=== PATIENT | female | born 1950 | race Caucasian/White ===

== ENCOUNTER → 2017-12-15 12:02 | Outpatient (CLI) | payer MEDICARE, OTHER, SELFPAY ==
--- NOTE | 2017-12-15 | DI.MG.S_ITS ---
BILATERAL DIGITAL SCREENING MAMMOGRAM 3D/2D WITH CAD: 12/15/2017 CLINICAL: Routine screening. Comparison is made to exams dated: 12/02/2016 mammogram, 11/17/2015 mammogram, and 09/02/2014 mammogram - [facility]. The tissue of both breasts is heterogeneously dense. This may lower the sensitivity of mammography. Current study was also evaluated with a Computer Aided Detection (CAD) system. No significant masses, calcifications, or other findings are seen in either breast. There has been no significant interval change. IMPRESSION: NEGATIVE There is no mammographic evidence of malignancy. A 1 year screening mammogram is recommended. This exam was interpreted at Station ID: [id number]. NOTE: For mammograms, a report in lay terms will be sent to the patient. Approximately 15% of breast malignancies will not be visualized mammographically. In the management of a palpable breast mass, a negative mammogram must not discourage biopsy of a clinically suspicious lesion. Electronically Signed By: Timmy raphael/toyin:12/15/2017 15:17:41 letter sent: Normal Exam ACR BI-RADS Category 1: Negative [id number]
== END ==
PROVIDERS: PCP Internal Medicine; Visit Provider Internal Medicine
DX: Z12.31 Encounter for screening mammogram for malignant neoplasm of breast (principal)
CPT/HCPCS: 77063; 77067

== ENCOUNTER → 2018-06-01 13:36 | Outpatient (CLI) | payer MEDICARE, OTHER, SELFPAY ==
--- NOTE | 2018-06-01 | DI.MRI.S_ITS ---
PROCEDURE: MR HIP LT WO CON INDICATIONS: LEFT HIP PAIN TECHNIQUE: Noncontrast coronal T1 spin echo and STIR through the bony pelvis. Coronal and axial T2 fast spin echo with fat saturation, sagittal T1 spin echo, and oblique axial T2 fast spin echo with fat saturation through the hip. COMPARISON: [facility] [place], CR, XR PELVIS WITH LATERAL HIP LEFT, 05/28/2018, 9:53. FINDINGS: Image quality: Excellent. Bones and joints: Bone marrow of the pelvic ring and proximal femurs demonstrates normal oral signal. No intraosseous lesions or fractures. No avascular necrosis of the femoral heads. The visualized lower lumbar spine appears normally aligned. Tendons and ligaments: The gluteus medius and minimus tendons appear intact, without associated muscle atrophy. The nearby proximal iliotibial band also appears intact. The iliopsoas tendon appears intact, without adjacent bursal fluid collections or evidence for impingement syndrome. The origin of the hamstring tendons appears mildly attenuated proximally with mild peritendinous edema suggestive of mild strains. The straight and reflected heads of the rectus femoris muscle origin appear intact, as well as the conjoint tendon. The ligamentum teres appears slightly thickened and intermediate in signal which may represent degenerative changes or sequelae of a mild sprain. Labrum and cartilage: The acetabular labrum demonstrates intermediate signal within the anterosuperior and superior labrum compatible with degeneration or mild degenerative tearing. Cartilage surface of the femoral head demonstrates mild thickening superiorly. The alpha angle of the femur is within normal limits at less than 55 degrees. Soft tissues: Visualized muscles demonstrate normal bulk and internal signal. Quadratus femoris muscle demonstrates no internal edema to suggest ischiofemoral impingement. The proximal sciatic neurovascular bundle appears normal adjacent to the hamstring tendons. Bladder wall thickness is normal. There is a moderate amount of free fluid in the abdomen and pelvis partially visualized. A multilobulated cystic and solid mass is demonstrated within the pelvis slightly eccentric to the right side. This measures approximately 7.1 x 6.8 cm in the coronal plane and is incompletely evaluated on the current study. A cystic lesion is also noted in the left adnexa measuring approximately 1.8 cm. Visualized bowel loops appear normal in caliber. IMPRESSION: 1. Large heterogeneous cystic and solid mass in the pelvis with moderate free fluid demonstrated. The findings are incompletely evaluated on the current study but suggestive of an ovarian neoplasm. Initial further evaluation is recommended with CT. Findings discussed with Dr. Brown's medical asst on 06/01/18 at 3:30 PM. 2. Degenerative signal within the superior and anterosuperior labrum suggestive of mild degenerative tearing. 3. Mild thickening and intermediate signal in the ligamentum teres which may reflect degenerative change or sequela of a mild sprain. 4. Mild attenuation and peritendinous edema along the proximal hamstring tendons suggestive of a mild strain. Dictated by: Kelechi Quiroz M.D. on 06/01/2018 at 15:32 Approved by: Kelechi Quiroz M.D. on 06/01/2018 at 15:44
== END ==
PROVIDERS: PCP Internal Medicine; Visit Provider Orthopaedic Surgery
DX: M25.552 Pain in left hip (principal); R19.09 Other intra-abdominal and pelvic swelling, mass and lump
CPT/HCPCS: 73721

== ENCOUNTER → 2019-01-15 10:37 | Outpatient (CLI) | payer MEDICARE, OTHER, SELFPAY ==
--- NOTE | 2019-01-15 | DI.MG.S_ITS ---
BILATERAL DIGITAL SCREENING MAMMOGRAM 3D/2D WITH CAD: 01/15/2019 CLINICAL: Routine screening. Comparison is made to exams dated: 12/15/2017 mammogram, 12/02/2016 mammogram, 11/17/2015 mammogram, and 09/02/2014 mammogram - [facility]. The tissue of both breasts is heterogeneously dense. This may lower the sensitivity of mammography. Current study was also evaluated with a Computer Aided Detection (CAD) system. Partially imaged catheter port projects over the superior right chest. There is a mole marker on the left breast. No significant masses, calcifications, or other findings are seen in either breast. There has been no significant interval change. IMPRESSION: NEGATIVE There is no mammographic evidence of malignancy. A 1 year screening mammogram is recommended. This exam was interpreted at Station ID: [id number]. NOTE: For mammograms, a report in lay terms will be sent to the patient. Approximately 15% of breast malignancies will not be visualized mammographically. In the management of a palpable breast mass, a negative mammogram must not discourage biopsy of a clinically suspicious lesion. Electronically Signed By: Corey Enciso M.D. ecl/:01/15/2019 19:09:48 copy to: Inocencia Berumen letter sent: Normal Exam ACR BI-RADS Category 1: Negative 3341F
== END ==
PROVIDERS: PCP Nurse Practitioner; Visit Provider Internal Medicine
DX: Z12.31 Encounter for screening mammogram for malignant neoplasm of breast (principal)
CPT/HCPCS: 77063; 77067

== ENCOUNTER → 2019-10-17 09:52 | Outpatient (CLI) | payer MEDICARE, OTHER, SELFPAY ==
[2019-10-17 13:12] LABS: Alanine Aminotransferase 14 IU/L (<35); Albumin 4.3 g/dL (3.5-5.0); Albumin Globulin Ratio 1.5 (1.0-2.8); Alkaline Phosphatase 75 U/L (38-126); Aspartate Aminotransferase 23 IU/L (14-36); BUN Creatinine Ratio 28.9 (6-22); Bilirubin Total 0.4 mg/dL (0.2-1.3); Blood Urea Nitrogen 28 mg/dL (7-17); Calcium 9.4 mg/dL (8.4-10.2); Carbon Dioxide 29 mmol/L (22-32); Chloride 101 mmol/L (98-107); Cholesterol 236 mg/dL (140-199); Estimated Glomerular Filt Rate 57.3 mL/min (>60); Globulin 2.9 g/dL (1.7-4.1); Glucose 102 mg/dL (80-110); HDL Cholesterol 67 mg/dL (40-60); HEMOLYSIS < 15 (0-50); LDL Cholesterol Calculated 143 mg/dL (<100); Potassium 4.3 mmol/L (3.4-5.1); Sodium 137 mmol/L (137-145); Total Protein 7.2 g/dL (6.3-8.2); Triglycerides 132 mg/dL (35-150)
[2019-10-17 13:18] LABS: Hemoglobin A1C% w Est Avg Glu 5.9 % (4.0-6.0)
== END ==
PROVIDERS: PCP Family Medicine; Referring Provider Family Medicine; Visit Provider Family Medicine
DX: Z76.89 Persons encountering health services in other specified circumstances (principal); Z13.1 Encounter for screening for diabetes mellitus
CPT/HCPCS: 36415; 80053; 80061; 83036

== ENCOUNTER 2020-04-07 15:44 | Emergency (ER) | payer MEDICARE, OTHER, SELFPAY ==
--- NOTE | 2020-04-07 15:48 | DI.RAD.S_ITS ---
PROCEDURE: XR CHEST 1V INDICATIONS: Eval for pneumonia TECHNIQUE: One view of the chest was acquired. COMPARISON: None. FINDINGS: Surgical changes and devices: Right-sided tunneled port device is in place. Lungs and pleura: Subtle patchy opacity involving the right mid lung zone. No focal consolidations. Lungs are otherwise clear. No pleural effusions or pneumothorax. Mediastinum: Mediastinal contours appear normal. Heart size is normal. Bones and chest wall: No suspicious bony lesions. Overlying soft tissues appear unremarkable. IMPRESSION: Subtle patchy opacity involving the right mid lung zone. This may represent atelectasis versus focal airspace disease. Recommend follow up chest radiograph 4-6 weeks after treatment to document resolution of findings and/or return to baseline examination. Dictated by: Vinay Mcneil M.D. on 04/07/2020 at 16:44 Approved by: Vinay Mcneil M.D. on 04/07/2020 at 16:46
[2020-04-07 15:58] VITALS: BP 137/76; PULSE 109; RESP 20; TEMP 39.3; O2SAT 96; BMI 22.4
[2020-04-07 16:21] LABS: COVID19 -Nasal RAPID Negative (Negative)
--- NOTE | 2020-04-07 16:54 | ED_ITS ---
HPI - General Adult General Chief complaint: Fever Stated complaint: 101.6 COUGH Time Seen by Provider: 04/07/20 15:48 Source: patient Mode of arrival: Ambulatory Limitations: no limitations History of Present Illness HPI narrative: 69-year-old female. Currently undergoing treatment for ovarian cancer. Last chemotherapy regimen was 3 weeks ago. Scheduled again for next week. Over the weekend had nonsustained fevers. This morning woke up with a cough and a sore throat. also has upper respiratory symptoms. She developed a fever today that was sustained she came the emergency department. No chest pain. If no abdominal pain. Is not currently on any prophylactic antibiotics. Related Data Home Medications Medication Instructions Recorded Confirmed trazodone 50 mg tablet 50 mg PO DAILY 07/10/19 12/31/19 Previous Rx's Medication Instructions Recorded zolpidem 10 mg tablet See Rx Instructions .ROUTE 12/10/19 .COMPLEX #90 tab cyclobenzaprine 10 mg tablet 10 mg PO BEDTIME #30 tab 12/28/19 ibuprofen 800 mg tablet 800 mg PO DAILY #90 tab 12/28/19 benzonatate 100 mg capsule 100 mg PO BID-TID PRN #30 cap 03/31/20 levofloxacin 750 mg PO Q24H 6 Days #6 tab 04/07/20 Allergies Allergy/AdvReac Type Severity Reaction Status Date / Time latex Allergy Severe Rash Verified 04/07/20 16:19 Review of Systems Constitutional Constitutional: Reports fever(s) and Denies headache(s) ENT Ears, Nose, Mouth, and Throat: Denies headache(s), Denies neck pain, Reports sore throat and Denies throat swelling Cardiovascular Cardiovascular: Denies chest pain and Denies dyspnea Respiratory Respiratory: Denies cough and Denies dyspnea Gastrointestinal Gastrointestinal: Denies nausea and Denies vomiting Musculoskeletal Musculoskeletal: Denies neck pain Integumentary/Breasts Skin/Breast: Denies rash Neurologic Neurologic: Denies behavioral changes and Denies headache(s) Psychiatric Psychiatric: Denies behavioral changes Hematologic/Lymphatic Hematologic/Lymphatic: Denies easy bleeding and Denies easy bruising Allergic/Immunologic Allergic/Immunologic: Denies urticaria and Denies throat swelling Patient History Medical History Allergies (Chronic) Anemia (Chronic ~2019) Chicken pox (Resolved) Depression (Chronic) Foot pain (Chronic) Insomnia disorder (Acute) Measles (Resolved) Melanoma (Chronic) Mumps (Resolved) Ovarian cancer (Chronic ~06/2018) Psoriasis (Chronic) Shoulder pain (Chronic) Skin cancer (Chronic) URI (upper respiratory infection) (Acute) Surgical History (Updated 02/18/19 @ 19:53 by Sirisha Jack) Anesthesia (Resolved) Breast lump (Resolved ~1978) History of hysterectomy (Resolved) History of knee surgery (Resolved ~1983) History of knee surgery (Resolved ~1985) Family History (Updated 02/18/19 @ 19:55 by Sirisha Jack) Father Hypertension Mother Diabetes mellitus Stroke Social History Smoking Status: Never smoker Smoking Status: Never smoker Substance Use Type: does not use Exam Initial Vital Signs Initial Vital Signs: Vital Signs Temperature 102.8 F H 04/07/20 15:58 Pulse Rate 109 H 04/07/20 15:58 Respiratory Rate 20 04/07/20 15:58 Blood Pressure 137/76 04/07/20 15:58 Pulse Oximetry 96 04/07/20 15:58 Const General: cooperative and comfortable Limitations: mental status not altered HENMT Head: normal to inspection and normocephalic Chest Other: Port right upper chest Resp Effort & Inspection: normal respiratory effort Auscultation: clear to auscultation bilaterally Cardio Rate: regular rate Rhythm: regular rhythm GI Inspection: non-distended Palpation: soft Skin Lesions: no lesions Rashes: no rashes Other: Port right upper chest looks well Neuro General: patient alert, patient awake and patient oriented x3 Cognition: normal cognition Speech: speech normal Extrem General: normal to inspection and capillary refill normal Psych Appearance: grossly normal and well kempt Scores GCS [place] coma scale eye opening: Spontaneous Luis coma scale verbal response: Orientated [place] coma scale motor response: Obey commands [place] coma scale total score: 15 Course Orders Ordered: ED Orders 04/07/20 15:48 XR chest 1V Stat 04/07/20 15:56 COVID19 -ED/INPAT/OR/L&D Stat 04/07/20 16:45 Complete Blood Count AUTO DIFF Stat Comprehensive Metabolic Panel Stat Lactate (Lactic Acid) Stat Lipase Stat Procalcitonin Stat 04/07/20 17:00 Blood Culture Stat Heparin Sodium (Porcine) (Heparin Flush (Port)) 500 unit IV PRN PRN PRN Reason: Flush Sodium Chloride (Normal Saline 0.9%) 1,000 mls @ 125 mls/hr IV CONT CELSA Last Infusion: 04/07/20 17:59 Dose: 0 mls/hr Documented by: Admin: 04/07/20 17:04 Dose: 125 mls/hr Documented by: SIMONE Discontinued Medications Acetaminophen (Tylenol) 650 mg PO NOW ONE Stop: 04/07/20 16:56 Last Admin: 04/07/20 17:07 Dose: 650 mg Documented by: SIMONE Cefepime HCl 2 gm/ Sodium (Chloride) 100 mls @ 200 mls/hr IV NOW ONE Stop: 04/07/20 16:18 Last Infusion: 04/07/20 17:28 Dose: 0 mls/hr Documented by: Admin: 04/07/20 17:05 Dose: 200 mls/hr Documented by: SIMONE Levofloxacin (Levaquin) 750 mg PO NOW ONE Stop: 04/07/20 17:49 Last Admin: 04/07/20 17:59 Dose: 750 mg Documented by: SIMONE Vital Signs Vital signs: Vital Signs - 8 hr 04/07/20 15:58 04/07/20 17:48 04/07/20 17:49 Temperature 102.8 F H Pulse Rate 109 H 92 H 93 H Respiratory Rate 20 27 H 18 Blood Pressure 137/76 146/68 H Pulse Oximetry 96 96 98 04/07/20 18:00 Temperature Pulse Rate 96 H Respiratory Rate 38 H Blood Pressure Pulse Oximetry 93 Medical Decision Making Lab Data Lab results reviewed: Yes I reviewed the patient's lab results. Result diagrams: 04/07/20 16:45 04/07/20 16:45 Labs: Lab Results 04/07/20 04/07/20 04/07/20 Range/Units 15:56 16:45 16:45 WBC 3.1 L (4.5-11.0) X10^3/uL RBC 2.58 L (4.0-5.2) X10^6/uL Hgb 9.0 L (12.0-16.0) g/dL Hct 26.1 L (36-46) % MCV 101.2 H (80-100) fL MCH 34.8 H (26-34) PG MCHC 34.4 (30-36) % RDW 14.1 (11.6-14.8) % Plt Count 134 L (150-400) X10^3/uL Neut % (Auto) 74.9 (50-75) % Lymph % (Auto) 12.7 L (25-40) % [place] % (Auto) 8.1 (3-14) % Eos % (Auto) 3.6 (2-4) % Baso % (Auto) 0.7 (0-2) % Neut # (Auto) 2300 (5866-7047) /uL Lymph # (Auto) 400 L (2788-7577) /uL [place] # (Auto) 200 (0-900) /uL Eos # (Auto) 100 (0-450) /uL Baso # (Auto) 0 (0-100) /uL Sodium (137-145) mmol/L Potassium (3.4-5.1) mmol/L Chloride (98-107) mmol/L Carbon Dioxide (22-32) mmol/L BUN (7-17) mg/dL Creatinine (0.52-1.04) mg/dL Estimated GFR (>60) mL/min BUN/Creatinine Ratio (6-22) Glucose (80-110) mg/dL Lactate (0.7-2.1) mmol/L Calcium (8.4-10.2) mg/dL Total Bilirubin (0.2-1.3) mg/dL AST (14-36) IU/L ALT (<35) IU/L Alkaline Phosphatase (38-126) U/L Total Protein (6.3-8.2) g/dL Albumin (3.5-5.0) g/dL Globulin (1.7-4.1) g/dL Albumin/Globulin Ratio (1.0-2.8) Lipase (23-300) U/L Procalcitonin 0.07 (<0.5) ng/mL COVID-19 PCR Negative (Negative) 04/07/20 04/07/20 Range/Units 16:45 16:45 WBC (4.5-11.0) X10^3/uL RBC (4.0-5.2) X10^6/uL Hgb (12.0-16.0) g/dL Hct (36-46) % MCV (80-100) fL MCH (26-34) PG MCHC (30-36) % RDW (11.6-14.8) % Plt Count (150-400) X10^3/uL Neut % (Auto) (50-75) % Lymph % (Auto) (25-40) % [place] % (Auto) (3-14) % Eos % (Auto) (2-4) % Baso % (Auto) (0-2) % Neut # (Auto) (6064-9456) /uL Lymph # (Auto) (3804-3080) /uL [place] # (Auto) (0-900) /uL Eos # (Auto) (0-450) /uL Baso # (Auto) (0-100) /uL Sodium 131 L (137-145) mmol/L Potassium 4.2 (3.4-5.1) mmol/L Chloride 96 L (98-107) mmol/L Carbon Dioxide 31 (22-32) mmol/L BUN 13 (7-17) mg/dL Creatinine 0.96 (0.52-1.04) mg/dL Estimated GFR 58.0 L (>60) mL/min BUN/Creatinine Ratio 13.5 (6-22) Glucose 122 H (80-110) mg/dL Lactate 1.1 (0.7-2.1) mmol/L Calcium 8.8 (8.4-10.2) mg/dL Total Bilirubin 0.3 (0.2-1.3) mg/dL AST 27 (14-36) IU/L ALT 15 (<35) IU/L Alkaline Phosphatase 62 (38-126) U/L Total Protein 6.8 (6.3-8.2) g/dL Albumin 3.8 (3.5-5.0) g/dL Globulin 3.0 (1.7-4.1) g/dL Albumin/Globulin Ratio 1.3 (1.0-2.8) Lipase 45 (23-300) U/L Procalcitonin (<0.5) ng/mL COVID-19 PCR (Negative) Urine Dip Bedside Urine Glucose Negative Bedside Urine Bilirubin - Negative Bedside Urine Ketone - Negative Urine Specific [place] 1.015 Bedside Urine Occult Blood - Negative Bedside Urine pH 6.0 Bedside Urine Protein - Negative Bedside Urine Urobilinogen - Negative Bedside Urine Nitrite - Negative Bedside Urine Leukocytes - Negative Esterase Point of care testing: Urine Dip Bedside Urine Glucose Negative Bedside Urine Bilirubin - Negative Bedside Urine Ketone - Negative Urine Specific [place] 1.015 Bedside Urine Occult Blood - Negative Bedside Urine pH 6.0 Bedside Urine Protein - Negative Bedside Urine Urobilinogen - Negative Bedside Urine Nitrite - Negative Bedside Urine Leukocytes - Negative Esterase Imaging Data Chest x-ray: Radiologist's Impression: [address] [address] XRay Report Signed Patient: Chayo Yanes MMR#: [id number] : 3Acct:[id number] Age/Sex: 69 / FDate of Service: 04/07/20 Loc: ED Accession Number: [id number] Procedure: XR chest 1V Ordering Provider: Del Bowman D.O. PROCEDURE: XR CHEST 1V INDICATIONS: Eval for pneumonia TECHNIQUE: One view of the chest was acquired. COMPARISON: None. FINDINGS: Surgical changes and devices: Right-sided tunneled port device is in place. Lungs and pleura: Subtle patchy opacity involving the right mid lung zone. No focal consolidations. Lungs are otherwise clear. No pleural effusions or pneumothorax. Mediastinum: Mediastinal contours appear normal. Heart size is normal. Bones and chest wall: No suspicious bony lesions. Overlying soft tissues appear unremarkable. IMPRESSION: Subtle patchy opacity involving the right mid lung zone. This may represent atelectasis versus focal airspace disease. Recommend follow up chest radiograph 4-6 weeks after treatment to document resolution of findings and/or return to baseline examination. Dictated by: Vinay Mcneil M.D. on 04/07/2020 at 16:44 Approved by: Vinay Mcneil M.D. on 04/07/2020 at 16:46 [facility] [place] Narrative Medical decision making narrative: Patient not neutropenic. Was febrile here in the ER. No skin changes concerning for cellulitis. Her port site looks well. Chest x-ray concerning for right mid lung finding. Patient is non toxic appearing and is well-appearing. I did discuss the case with the patient's oncologist who recommended discharging the patient home on Levaquin. They have a follow-up tomorrow already scheduled. Cultures were pending at the time of discharge. Patient given 1st dose of Levaquin here in the ER in a prescription for the remainder. She is given return precautions and follow-up instructions. They expressed understanding and agreement. Discharge Plan Departure Patient Disposition: Home Clinical Impression: Fever Qualifiers: Fever type: unspecified Qualified Code(s): R50.9 - Fever, unspecified Instructions: DI for Fever (Symptom) -- Adult Activity Restrictions/Additional Instructions: Blood cultures were pending at the time your discharge. We will contact you for any positive results. You were given your 1st dose of antibiotics here in the ER. The remainder of the course was electronically transmitted to [facility] in [place]. Keep all of your scheduled appointments especially with your oncologist tomorrow. Return to the emergency department for any new or worsening symptoms Prescriptions: New levofloxacin 750 mg tablet 750 mg PO Q24H 6 Days Qty: 6 RF: 0 No Action cyclobenzaprine 10 mg tablet 10 mg PO BEDTIME Qty: 30 RF: 1 ibuprofen 800 mg tablet 800 mg PO DAILY Qty: 90 RF: 1 zolpidem 10 mg tablet See Rx Instructions .ROUTE .COMPLEX Qty: 90 RF: 1 trazodone 50 mg tablet 50 mg PO DAILY RF: 0 benzonatate [Tessalon Perles] 100 mg capsule 100 mg PO BID-TID PRN (Reason: cough) Qty: 30 RF: 0 Referrals: Ramsey Talbert DO [Primary Care Provider] -
[2020-04-07 17:04] LABS: Add Manual Diff / Slide Review NO; Basophils Absolute Auto 0 /uL (0-100); Basophils Percent Auto 0.7 % (0-2); Eosinophils Absolute Auto 100 /uL (0-450); Eosinophils Percent Auto 3.6 % (2-4); Hematocrit 26.1 % (36-46); Lymphocytes Absolute Auto 400 /uL (1100-4500); Lymphocytes Percent Auto 12.7 % (25-40); Mean Corpuscular HGB Conc 34.4 % (30-36); Mean Corpuscular Hemoglobin 34.8 PG (26-34); Mean Corpuscular Volume 101.2 fL (80-100); Monocytes Absolute Auto 200 /uL (0-900); Monocytes Percent Auto 8.1 % (3-14); Neutrophils Absolute Auto 2300 /uL (1500-7000); Neutrophils Percent Auto 74.9 % (50-75); Platelet Count 134 X10^3/uL (150-400); Red Blood Cell Count 2.58 X10^6/uL (4.0-5.2); Red Cell Distribution Width 14.1 % (11.6-14.8); White Blood Cell Count 3.1 X10^3/uL (4.5-11.0)
[2020-04-07] MEDS: SODIUM CHLORIDE 0.9% 1,000 ML 125 ML IV (17:04)
[2020-04-07] MEDS: CEFEPIME 2 GM in SODIUM CHLORIDE 0.9% 100 ML 200 ML IV (17:05)
[2020-04-07] MEDS: LIDOCAINE 1% (PF) 2 ML (17:05)
[2020-04-07] MEDS: ACETAMINOPHEN 325 MG TABLET 650 MG PO (17:07)
[2020-04-07 17:13] LABS: Lactate (Lactic Acid) 1.1 mmol/L (0.7-2.1)
[2020-04-07 17:14] LABS: Alanine Aminotransferase 15 IU/L (<35); Albumin 3.8 g/dL (3.5-5.0); Albumin Globulin Ratio 1.3 (1.0-2.8); Alkaline Phosphatase 62 U/L (38-126); Aspartate Aminotransferase 27 IU/L (14-36); BUN Creatinine Ratio 13.5 (6-22); Bilirubin Total 0.3 mg/dL (0.2-1.3); Blood Urea Nitrogen 13 mg/dL (7-17); Calcium 8.8 mg/dL (8.4-10.2); Carbon Dioxide 31 mmol/L (22-32); Chloride 96 mmol/L (98-107); Glucose 122 mg/dL (80-110); HEMOLYSIS < 15 (0-50); Lipase 45 U/L (23-300); Potassium 4.2 mmol/L (3.4-5.1); Sodium 131 mmol/L (137-145); Total Protein 6.8 g/dL (6.3-8.2)
[2020-04-07 17:29] LABS: Procalcitonin 0.07 ng/mL (<0.5)
[2020-04-07 17:48] VITALS: PULSE 92; RESP 27; O2SAT 96
[2020-04-07 17:49] VITALS: BP 146/68; PULSE 93; RESP 18; O2SAT 98
[2020-04-07] MEDS: levoFLOXacin 250 MG TABLET 750 MG PO (17:59)
[2020-04-07 18:00] VITALS: PULSE 96; RESP 38; O2SAT 93
[2020-04-07 18:32] VITALS: TEMP 37.6
[2020-04-07 18:33] VITALS: BP 136/66
== END 2020-04-07 18:45 | disposition home or self-care (01) ==
PROVIDERS: Emergency Provider Emergency Medicine; PCP Family Medicine
DX: R50.9 Fever, unspecified (principal); R05 Cough; J02.9 Acute pharyngitis, unspecified
CPT/HCPCS: 36415; 71045; 80053; 81003; 83605; 83690; 84145; 85025; 87040; 87635; 96365; 99284; J0692; J1642

== ENCOUNTER → 2020-04-20 13:38 | Outpatient (CLI) | payer MEDICARE, OTHER, SELFPAY ==
--- NOTE | 2020-04-20 13:40 | DI.RAD.S_ITS ---
PROCEDURE: XR CHEST 2V INDICATIONS: Persistent cough TECHNIQUE: 2 views of the chest were acquired. COMPARISON: [facility], CR, XR CHEST 1V, 04/07/2020, 16:31. FINDINGS: Surgical changes and devices: Port-A-Cath in normal position from right-sided approach.. Lungs and pleura: Lungs are clear. No pleural effusions or pneumothorax. Mediastinum: Mediastinal contours are normal. Heart size is normal. Bones and chest wall: No suspicious bony abnormalities. Soft tissues appear unremarkable. IMPRESSION: Normal for age, source of current persistent cough symptoms is not seen. Dictated by: Chapincito Hopkins M.D. on 04/20/2020 at 14:40 Approved by: Chapincito Hopkins M.D. on 04/20/2020 at 14:40
[2020-04-20 14:22] LABS: Add Manual Diff / Slide Review NO; Basophils Absolute Auto 0 /uL (0-100); Basophils Percent Auto 0.6 % (0-2); Eosinophils Absolute Auto 1300 /uL (0-450); Eosinophils Percent Auto 19.9 % (2-4); Hematocrit 28.6 % (36-46); Hemoglobin 9.8 g/dL (12.0-16.0); Lymphocytes Absolute Auto 1100 /uL (1100-4500); Lymphocytes Percent Auto 17.1 % (25-40); Mean Corpuscular HGB Conc 34.2 % (30-36); Mean Corpuscular Hemoglobin 34.1 PG (26-34); Mean Corpuscular Volume 99.7 fL (80-100); Monocytes Absolute Auto 700 /uL (0-900); Monocytes Percent Auto 10.4 % (3-14); Neutrophils Absolute Auto 3300 /uL (1500-7000); Platelet Count 428 X10^3/uL (150-400); Red Blood Cell Count 2.87 X10^6/uL (4.0-5.2); Red Cell Distribution Width 14.3 % (11.6-14.8); White Blood Cell Count 6.4 X10^3/uL (4.5-11.0)
[2020-04-20 15:37] LABS: Alanine Aminotransferase 16 IU/L (<35); Albumin Globulin Ratio 1.3 (1.0-2.8); Alkaline Phosphatase 74 U/L (38-126); Aspartate Aminotransferase 31 IU/L (14-36); BUN Creatinine Ratio 19.8 (6-22); Bilirubin Total 0.4 mg/dL (0.2-1.3); Blood Urea Nitrogen 20 mg/dL (7-17); Calcium 9.3 mg/dL (8.4-10.2); Carbon Dioxide 35 mmol/L (22-32); Chloride 97 mmol/L (98-107); Estimated Glomerular Filt Rate 54.7 mL/min (>60); Globulin 3.2 g/dL (1.7-4.1); Glucose 106 mg/dL (80-110); HEMOLYSIS < 15 (0-50); Potassium 4.4 mmol/L (3.4-5.1); Sodium 136 mmol/L (137-145); Total Protein 7.2 g/dL (6.3-8.2)
== END ==
PROVIDERS: PCP Family Medicine; Referring Provider Family Medicine; Visit Provider Family Medicine
DX: R05 Cough (principal); C56.9 Malignant neoplasm of unspecified ovary; J18.9 Pneumonia, unspecified organism; J32.9 Chronic sinusitis, unspecified
CPT/HCPCS: 36415; 71046; 80053; 85025